=== PATIENT | male | born 1990 | race Caucasian/White ===

== ENCOUNTER 2019-07-20 17:49 | Emergency (ER) | payer OTHER ==
[2019-07-20 17:53] VITALS: BP 139/92; PULSE 85; RESP 18; TEMP 97.8
[2019-07-20] MEDS ORDERED: PROPARACAINE 0.5% OPHTH DROPS 15 ML BTL LEFT EYE STA (18:05)
[2019-07-20] MEDS ORDERED: FLUORESCEIN STRIPS 1 MG STRIP LEFT EYE ONE (18:05)
[2019-07-20] MEDS ORDERED: DIPH,PERTUS(ACELL)TETVAC-LF 0.5 ML VIAL IM ONE (18:05)
--- NOTE | 2019-07-20 18:23 | ED ---
General Adult HPI - General Chief complaint: Eye Problems Stated complaint: eye problem Time Seen by Provider: 07/20/19 18:04 Source: patient, RN notes reviewed Mode of arrival: ambulatory Limitations: no limitations - History of Present Illness Initial comments: 28-year-old male presents for foreign body in the left eye. Patient states he was using a disk grinder when he felt something hit his left eye. States that he believes it is still in there. Tetanus is not up-to-date. Denies visual changes. Patient does have a history of contact usage.Patient has no other complaints at this time including shortness of breath, chest pain, abdominal pain, nausea or vomiting, headache, or visual changes. - Related Data Previous Rx's Medication Instructions Recorded Levofloxacin 0.5% Ophth Soln 1 drop LEFT EYE DIRECTED 7 Days 07/20/19 [Quixin Ophth Soln] #1 bottle Allergies Allergy/AdvReac Type Severity Reaction Status Date / Time No Known Allergies Allergy Verified 07/20/19 17:53 Review of Systems ROS Statement: Those systems with pertinent positive or pertinent negative responses have been documented in the HPI. ROS Other: All systems not noted in ROS Statement are negative. Past Medical History Past Medical History: No Reported History History of Any Multi-Drug Resistant Organisms: None Reported Past Surgical History: No Surgical Hx Reported Past Psychological History: No Psychological Hx Reported Smoking Status: Never smoker Past Alcohol Use History: None Reported Past Drug Use History: None Reported General Exam Limitations: no limitations General appearance: alert, in no apparent distress Head exam: Present: atraumatic, normocephalic, normal inspection Eye exam: Present: PERRL, EOMI, other (Small submillimeter body noted over center of the conjunctiva of the left eye. ). Absent: scleral icterus, conjunctival injection, periorbital swelling Expanded Eyelids: Normal Inspection: Bilateral Pupils: Regular, Round: Bilateral Sclera/Conjunctival: Normal Inspection: Right, Foreign Body: Left ENT exam: Present: normal exam, mucous membranes moist Neck exam: Present: normal inspection, full ROM. Absent: tenderness, meningismus, lymphadenopathy Course Vital Signs 07/20/19 17:50 Temperature 97.8 F Pulse Rate 85 Respiratory 18 Rate Blood Pressure 139/92 O2 Sat by Pulse 98 Oximetry Procedures - Forgein Body Removal Eye Site: Left Location in eye(s): Center Anesthetic Used: Proparacaine Eye Exam Technique: Mendoza Lamp, Fluorescein Foreign Body Suspected: Metal Forgein Body Removal Technique: Cotton Swab, Needle Remaining Debris: No Patient Tolerated: well Medical Decision Making - Medical Decision Making Patient presents with left conjunctival foreign body. Small submillimeter foreign body noted in the anterior conjunctiva. Irritation completely resolved with proparacaine. I did attempt to remove this with a Q-tip however was unsuccessful. I then used an 18-gauge catheter which was successful without complication. Afterwards I the eye with fluorescein stain and use the Wood's lamp to visualize the abrasion. There is no evidence of Maryjane sign. No evidence of retained foreign body. There is no evidence of rust ring. Patient does have a history of contact usage so will be treated with Levaquin. I recommend he follow up with primary care doctor ophthalmology. He will return here if any worsening symptoms. Tetanus was updated. Disposition Clinical Impression: Corneal foreign body Disposition: HOME SELF-CARE Condition: Good Instructions (If sedation given, give patient instructions): Eye Foreign Body (ED) Additional Instructions: Please use antibiotic drops as directed. This was prescribed to [facility] on [address]. Follow-up with primary care or ophthalmology in one to 2 days. Return if you have any worsening symptoms. Prescriptions: Levofloxacin 0.5% Ophth Soln [Quixin Ophth Soln] 1 drop LEFT EYE DIRECTED 7 Days #1 bottle Is patient prescribed a controlled substance at d/c from ED?: No Referrals: Hang Garcia MD [REFERRING] - 1-2 days Yahaira Urbano MD [STAFF PHYSICIAN] - 1-2 days Time of Disposition: 18:19
== END 2019-07-20 18:50 | disposition home or self-care (01) ==
LOC: EC 17:49
DX: T15.12XA Foreign body in conjunctival sac, left eye, initial encounter (principal); Z23 Encounter for immunization; Y93.89 Activity, other specified
CPT/HCPCS: 65205; 90471; 90715; 99283